=== PATIENT | male | born 1980 | race Caucasian/White ===

== ENCOUNTER 2018-02-23 14:50 | Emergency (ER) | payer SELFPAY ==
[2018-02-23 15:18] VITALS: BMI 22.8
--- NOTE | 2018-02-23 15:42 | C.PDOC ---
History Of Present Illness 37 year old male presents to the emergency department heavily intoxicated. Patient reports that he has been experiencing chest pain since last week, and that he has felt it before too. He is very difficult to obtain a history from, due to the fact that he is intoxicated. Patient is slurring his speech, not quantifying or qualifying his chest pain, and not answering questions appropriately. Time Seen by Provider: 02/23/18 15:01 Chief Complaint (Nursing): Substance Abuse History Per: Patient History/Exam Limitations: intoxication (difficult to communicate with) Onset/Duration Of Symptoms: Days (one week) Past Medical History Vital Signs: Last Vital Signs Temp 98.8 F 02/23/18 18:22 Pulse 79 02/23/18 18:22 Resp 16 02/23/18 18:22 BP 119/81 02/23/18 18:22 Pulse Ox 98 02/23/18 18:22 - Medical History PMH: Bipolar Disorder (with psychotic features), Depression Surgical History: No Surg Hx - [facility] Procedures APPLICATION OF SPLINT (03/01/15) DETOXIFICATION SERVICES FOR SUBSTANCE ABUSE TREATMENT (01/29/17) GROUP QUALITY IMPROVEMENT ENGINEER FOR SUBSTANCE ABUSE TREATMENT, PSYCHOEDUCATION (01/29/17) GROUP QUALITY IMPROVEMENT ENGINEER FOR SUBSTANCE ABUSE, COGNITIVE BEHAVIORAL (01/29/17) GROUP PSYCHOTHERAPY (04/12/16) INDIV QUALITY IMPROVEMENT ENGINEER FOR SUBSTANCE ABUSE TREATMENT, PSYCHOEDUCATION (01/29/17) INDIV QUALITY IMPROVEMENT ENGINEER FOR SUBSTANCE ABUSE, COGNITIVE BEHAVIORAL (01/29/17) INDIVIDUAL PSYCHOTHERAPY, SUPPORTIVE (01/29/17) MEDICATION MANAGEMENT (04/12/16) TETANUS TOXOID ADMINIST (03/01/15) Family History: States: No Known Family Hx - Social History Hx Tobacco Use: No Hx Alcohol Use: Yes Hx Substance Use: Yes - Immunization History Hx Tetanus Toxoid Vaccination: No Hx Influenza Vaccination: No Hx Pneumococcal Vaccination: No Physical Exam - Physical Exam Appears: Well, Non-toxic Skin: Normal Color Head: Atraumatic, Normacephalic Eye(s): bilateral: Other (injected conjunctiva) Ear(s): Bilateral: Normal Nose: Normal Oral Mucosa: Moist Tongue: Normal Appearing Throat: Normal Neck: Normal Chest: Symmetrical Cardiovascular: Rhythm Regular Respiratory: Normal Breath Sounds Gastrointestinal/Abdominal: Normal Exam Back: Normal Inspection Neurological/Psych: Oriented x3, No Normal Speech (intoxicated) ED Course And Treatment - Laboratory Results Result Diagrams: 02/23/18 15:38 02/23/18 15:38 Lab Interpretation: Abnormal (WBC 2.8, Na 152, Cl 111, normal Troponin) ECG: Interpreted By Me, Viewed By Me ECG Rhythm: Sinus Rhythm (78) ECG Interpretation: Normal O2 Sat by Pulse Oximetry: 99 (RA) Pulse Ox Interpretation: Normal - Radiology CXR: Interpreted by Me CXR Interpretation: Yes: No Acute Disease Reevaluation Time: 19:20 Reassessment Condition: Improved (patient awake alert and ambulatory in ED with steady gait.) Medical Decision Making Medical Decision Making: Plan: * ECG * CMP, Troponin, Alcohol Serum * CBC * CXR One-View Impression: CXR: No active pulmonary disease. Disposition Counseled Patient/Family Regarding: Studies Performed, Diagnosis, Need For Followup - Disposition Disposition: HOME/ ROUTINE Disposition Time: 19:21 Condition: IMPROVED Instructions: Alcohol Abuse and Alcoholism (DC), Chest Pain That Is Not Caused by the Heart (DC) Forms: [employer] (Malay) Print Language: ISRAELI - Clinical Impression Clinical Impression: Alcohol abuse, Musculoskeletal chest pain - Scribe Statement The provider has reviewed the documentation as recorded by the Scribe (Melvin [email or web address]) Provider Attestation: All medical record entries made by the Scribe were at my direction and personally dictated by me. I have reviewed the chart and agree that the record accurately reflects my personal performance of the history, physical exam, medical decision making, and the department course for this patient. I have also personally directed, reviewed, and agree with the discharge instructions and disposition.
[2018-02-23 15:44] LABS: BASO % 0.2 % (0.0-2.0); HEMOGLOBIN 16.4 g/dL (12.0-18.0); LYMPH # 1.7 K/uL (1.0-4.3); LYMPH % 60.9 % (20.0-40.0); MEAN CELL VOLUME 95.5 fL (80.0-94.0); MEAN CORPUSCULAR HEMOGLOBIN 33.3 pg (27.0-31.0); MEAN CORPUSCULAR HGB CONC 34.8 g/dL (33.0-37.0); MEAN PLATELET VOLUME 7.7 fL (7.2-11.7); MONO # 0.2 K/uL (0.0-0.8); MONO % 5.7 % (0.0-10.0); NEUT # 0.9 K/uL (1.8-7.0); NEUT % 33.2 % (50.0-75.0); NRBC % 0.2 % (0.0-2.0); RBC 4.91 Mil/uL (4.40-5.90); RED CELL DISTRIBUTION WIDTH 12.2 % (11.5-14.5); WHITE BLOOD COUNT 2.8 K/uL (4.8-10.8)
[2018-02-23 16:06] LABS: ALB/GLOB RATIO 1.3 (1.0-2.1); ALBUMIN 4.8 g/dL (3.5-5.0); ALT/SGPT 42 U/L (21-72); AST/SGOT 57 U/L (17-59); BLOOD UREA NITROGEN 9 mg/dL (9-20); CALCIUM 9.1 mg/dl (8.6-10.4); GFR AFRICAN-AMERICAN > 60; GFR NON-AFRICAN AMERICAN > 60
[2018-02-23] MEDS ORDERED: Sodium Chloride 0.9% 1,000 ML IV ONE (16:09)
--- NOTE | 2018-02-23 16:25 | RAD ---
PROCEDURE: CHEST RADIOGRAPH, 1 VIEW HISTORY: chest pain COMPARISON: 04/12/2016. FINDINGS: LUNGS: The lungs are well inflated and clear. PLEURA: No pneumothorax or pleural fluid seen. CARDIOVASCULAR: Normal. OSSEOUS STRUCTURES: No significant abnormalities. VISUALIZED UPPER ABDOMEN: Normal. OTHER FINDINGS: None. IMPRESSION: No active pulmonary disease.
[2018-02-23 19:23] VITALS: O2SAT 99
[2018-02-23 19:32] VITALS: BP 142/93; PULSE 74; RESP 20; TEMP 97.7
--- NOTE | 2018-02-24 23:24 | CARD ---
APPROVED REPORT EKG Measurement Heart [id number] 152P-4 [id number] <Conclusion> Normal sinus rhythm Normal ECG
== END 2018-02-23 19:34 | disposition home or self-care (01) ==
LOC: C.ER 14:50
DX: F10.10 Alcohol abuse, uncomplicated (principal); R07.89 Other chest pain
CPT/HCPCS: 71045; 80053; 84484; 85025; 93005; 96360; 99285; G0480; J7040